=== PATIENT | male | born 1950 | race Caucasian/White ===

== ENCOUNTER → 2016-09-11 | Outpatient (CLI) | payer OTHER ==
--- NOTE | 2016-09-11 11:24 | DX ---
Left femur series 2 views 0954 hours. History: Recheck hardware. Findings: Internal fixation plate with attachment screws proximal femur and large caliber compression screw into the left hip are in good position and alignment. There is remodeling associated with prev ious fracture. No erosions are seen. The left hip joint space is normal. Tiny marginal osteophyte is seen at the femoral head level. There is mild knee joint space narrowing diffusely with small margina l osteophytes as well. Impression: 1. Good alignment of hardware proximal left femur with remodeling associated with previous fracture. 2. Tiny osteophytes at the left femoral head. 3. Mild narrowing suspected at the knee joint with small osteophytes.
== END ==
LOC: BMCIMAGING 09:55
PROVIDERS: ATTEND Internal Medicine
DX: Z47.82 Encounter for orthopedic aftercare following scoliosis surgery (principal); Z96.9 Presence of functional implant, unspecified

== ENCOUNTER → 2018-03-11 | Outpatient (CLI) | payer OTHER, MEDICARE | LOC: BMCIMAGING 15:49 | PROVIDERS: ATTEND Orthopaedic Surgery Hand Surgery | DX: M25.522 Pain in left elbow (principal) ==

== ENCOUNTER → 2018-09-30 | Outpatient (CLI) | payer OTHER, MEDICARE | LOC: BMCIMAGING 10:40 | PROVIDERS: ATTEND Internal Medicine | DX: R05 Cough (principal); J40 Bronchitis, not specified as acute or chronic ==